=== PATIENT | female | born 1935 | race Caucasian/White ===

== ENCOUNTER 2018-07-19 20:25 | Inpatient (IN) | payer MEDICARE, MEDICAID ==
[~2018-07-19] VITALS: Ht 170.2 cm; Wt 70.8 kg
[2018-07-19] MEDS ORDERED: SODIUM CHLORIDE FLUSH 10ML SYR IVF ONE (21:00)
[2018-07-19 21:13] LABS: BASOPHILS # (AUTO) 0.14 x10^3/uL (0-0.1); BASOPHILS % (AUTO) 2 % (0-1); EOSINOPHILS # (AUTO) 0.08 x10^3/uL (0-0.4); EOSINOPHILS % (AUTO) 1 % (1-7); LYMPHOCYTES # (AUTO) 2.01 x10^3/uL (1-3.4); LYMPHOCYTES % (AUTO) 26 % (22-44); MD NO; MEAN CORPUSCULAR HEMOGLOBIN 31.5 pg (27.0-34.8); MEAN CORPUSCULAR HGB CONC 33.5 g/dL (32.4-35.8); MEAN CORPUSCULAR VOLUME 93.8 fL (80-100); MEAN PLATELET VOLUME 9.4 fL (7.4-10.4); MONOCYTES # (AUTO) 0.63 x10^3/uL (0.2-0.8); MONOCYTES % (AUTO) 8 % (2-9); NEUTROPHILS # (AUTO) 4.85 x10^3/uL (1.8-6.8); NEUTROPHILS % (AUTO) 63 % (42-75); PLATELET COUNT 220 x10^3/uL (130-400); RED CELL DISTRIBUTION WIDTH 12.6 % (9.6-15.2)
[2018-07-19 21:22] LABS: INTERNATIONAL NORMALIZED RATIO 1.02 (0.93-1.1); PROTHROMBIN TIME 10.5 Seconds (9.6-11.5)
[2018-07-19 21:23] LABS: ALANINE AMINOTRANSFERASE 18 U/L (12-78); ALBUMIN 3.4 g/dL (3.4-5.0); ANION GAP 6 mmol/L (5-15); CALCIUM 9.1 mg/dL (8.5-10.1); CHLORIDE 104 mmol/L (98-107); CREATININE 0.62 mg/dL (0.55-1.02)
[2018-07-19 21:27] LABS: ALKALINE PHOSPHATASE 56 U/L (45-117); BILIRUBIN,TOTAL 0.6 mg/dL (0.2-1.0); TROPONIN I < 0.015 ng/mL (0.000-0.045)
[2018-07-19] MEDS ORDERED: CEFTRIAXONE 1,000 MG in SODIUM CHLORIDE 0.9% 50 ML IVPB ONE (22:00)
[2018-07-19] MEDS ORDERED: PLEASE ENTER ALLERGIES MC SCH ×2 (22:00→23:00)
[2018-07-19] MEDS ORDERED: AZITHROMYCIN 500 MG in SODIUM CHLORIDE 0.9% 250 ML IVPB ONE (22:00)
[2018-07-19] MEDS ORDERED: SODIUM CHLORIDE 0.9% 1,000 ML IV SCH (22:08)
[2018-07-19] MEDS ORDERED: LABETALOL 5MG/ML, 20ML IVPush PRN (22:30)
[2018-07-19] MEDS ORDERED: POLYETHYLENE GLYCOL 17 GM PACKET PO PRN (22:30)
[2018-07-19] MEDS ORDERED: DOCUSATE 100 MG CAPSULE PO PRN (22:30)
[2018-07-19] MEDS ORDERED: PROMETHAZINE 25 MG/ML, 1ML IM PRN (22:30)
[2018-07-19] MEDS ORDERED: CEFTRIAXONE PMX 1GM/50ML 50 ML IV ONE (22:30)
[2018-07-19] MEDS ORDERED: ONDANSETRON ODT 4 MG PO PRN (22:30)
[2018-07-19] MEDS ORDERED: ONDANSETRON 2MG/ML, 2ML IVPush PRN (22:30)
[2018-07-19] MEDS ORDERED: BISACODYL 10 MG SUPP PR PRN (22:30)
[2018-07-19] MEDS ORDERED: CELEXA (22:39)
[2018-07-19] MEDS ORDERED: KLONOPIN (22:39)
[2018-07-19 23:05] LABS: HEMOGLOBIN A1C 5.3 % (4.2-6.3)
[2018-07-19 23:06] LABS: FREE T4 (FREE THYROXINE) 1.04 ng/dL (0.76-1.46); THYROID STIMULATING HORMONE 1.57 mIU/L (0.358-3.740)
[2018-07-19 23:11] VITALS: BP 157/73
[2018-07-19] MEDS: HEPARIN 5,000 UNITS/ML, 1ML SQ SCH (23:45)
[2018-07-20] MEDS: ACETAMINOPHEN 325 MG TABLET PO PRN (00:20)
[2018-07-20 01:42] VITALS: BP 143/63
[2018-07-20 04:44] LABS: BASOPHILS # (AUTO) 0.07 x10^3/uL (0-0.1); BASOPHILS % (AUTO) 1 % (0-1); EOSINOPHILS # (AUTO) 0.18 x10^3/uL (0-0.4); EOSINOPHILS % (AUTO) 3 % (1-7); LYMPHOCYTES # (AUTO) 2.29 x10^3/uL (1-3.4); LYMPHOCYTES % (AUTO) 34 % (22-44); MD NO; MEAN CORPUSCULAR HEMOGLOBIN 31.5 pg (27.0-34.8); MEAN CORPUSCULAR HGB CONC 33.6 g/dL (32.4-35.8); MEAN CORPUSCULAR VOLUME 93.6 fL (80-100); MEAN PLATELET VOLUME 9.3 fL (7.4-10.4); MONOCYTES % (AUTO) 10 % (2-9); NEUTROPHILS # (AUTO) 3.58 x10^3/uL (1.8-6.8); NEUTROPHILS % (AUTO) 53 % (42-75); PLATELET COUNT 203 x10^3/uL (130-400); RED BLOOD COUNT 3.71 x10^6/uL (3.82-5.3); RED CELL DISTRIBUTION WIDTH 12.4 % (9.6-15.2)
[2018-07-20 04:53] LABS: ANION GAP 6 mmol/L (5-15); CALCIUM 8.3 mg/dL (8.5-10.1); CHLORIDE 107 mmol/L (98-107)
[2018-07-20 04:58] LABS: ALANINE AMINOTRANSFERASE 16 U/L (12-78); ALKALINE PHOSPHATASE 52 U/L (45-117); BILIRUBIN,TOTAL 0.3 mg/dL (0.2-1.0); CHOL/HDL RATIO 2.7; CHOLESTEROL, TOTAL 159 mg/dL (140-239); CREATININE 0.72 mg/dL (0.55-1.02); HDL CHOL % 37 % (28-40); HDL CHOLESTEROL (DIRECT) 59 mg/dL (40-60); LDL CHOLESTEROL,CALCULATED 79 mg/dL (54-169); LDL/HDL RATIO 1.3 (0.5-3.0); TOTAL PROTEIN 7.2 g/dL (6.4-8.2); TRIGLYCERIDES 106 mg/dL (50-200); VLDL CHOLESTEROL 21 mg/dL (0-25)
[2018-07-20 07:15] VITALS: BP 136/62
[2018-07-20] MEDS: HEPARIN 5,000 UNITS/ML, 1ML SQ SCH ×3 (08:47→23:37)
[2018-07-20] MEDS ORDERED: POTASSIUM CHLORIDE 20 MEQ TAB.ER.PRT PO ONE (10:30)
[2018-07-20 12:56] VITALS: BP 144/56
[2018-07-20 19:19] VITALS: BP 173/77
[2018-07-20 19:42] VITALS: BP 157/73
[2018-07-20] MEDS: CEFTRIAXONE PMX 2GM/50ML 50 ML IV SCH (23:10)
[2018-07-21] VITALS (7 sets, daily range): BP systolic 113–193; BP diastolic 66–84
[2018-07-21] MEDS: hydrALAzine 20 MG/ML, 1ML IVPush PRN ×2 (01:27→14:47)
[2018-07-21] MEDS: AZITHROMYCIN 500 MG in SODIUM CHLORIDE 0.9% 250 ML IV SCH (01:40)
[2018-07-21] MEDS: HEPARIN 5,000 UNITS/ML, 1ML SQ SCH ×2 (08:41→17:35)
[2018-07-21] MEDS ORDERED: CEFU500T50 PO (09:09)
[2018-07-21] MEDS ORDERED: AZIT500T PO (09:09)
[2018-07-21] MEDS ORDERED: ZIPRASIDONE 20 MG INJ IM ONE ×2 (18:00→18:03)
[2018-07-21] MEDS: CEFTRIAXONE PMX 2GM/50ML 50 ML IV SCH (23:18)
[2018-07-22 01:03] VITALS: BP 115/67
[2018-07-22] MEDS: AZITHROMYCIN 500 MG in SODIUM CHLORIDE 0.9% 250 ML IV SCH (02:05)
[2018-07-22] MEDS: HEPARIN 5,000 UNITS/ML, 1ML SQ SCH ×3 (08:25→17:18)
[2018-07-22 08:29] VITALS: BP 136/67
[2018-07-22 13:50] VITALS: BP 137/71
[2018-07-22] MEDS ORDERED: HYDROCORTISONE 5 MG TABLET ONE (17:15)
[2018-07-22] MEDS: HYDROCORTISONE 10 MG TABLET PO SCH (17:27)
[2018-07-22] MEDS ORDERED: PROMETHAZINE 25MG TABLET PO PRN (19:30)
[2018-07-22 20:03] VITALS: BP 130/68
[2018-07-22] MEDS: ACETAMINOPHEN 325 MG TABLET PO PRN (20:25)
[2018-07-22] MEDS: CEFTRIAXONE PMX 2GM/50ML 50 ML IV SCH (23:21)
[2018-07-23 01:25] VITALS: BP 140/66
[2018-07-23] MEDS: HEPARIN 5,000 UNITS/ML, 1ML SQ SCH ×3 (02:00→17:02)
[2018-07-23] MEDS: AZITHROMYCIN 500 MG in SODIUM CHLORIDE 0.9% 250 ML IV SCH (03:05)
[2018-07-23 08:05] VITALS: BP 155/64
[2018-07-23] MEDS: CITALOPRAM 20 MG TABLET PO SCH ×2 (09:00→20:50)
[2018-07-23] MEDS: BISOPROLOL 5 MG PO SCH ×2 (09:00→20:44)
[2018-07-23] MEDS: HYDROCORTISONE 10 MG TABLET PO SCH ×2 (09:46→17:02)
[2018-07-23 12:58] VITALS: BP 130/72
[2018-07-23 18:55] LABS: MICROSCOPIC AUTO
[2018-07-23 18:56] LABS: CULTURE INDICATED? NO
[2018-07-23 19:15] VITALS: BP 134/66
[2018-07-23] MEDS: ACETAMINOPHEN 325 MG TABLET PO PRN (20:44)
[2018-07-23] MEDS: CEFTRIAXONE PMX 2GM/50ML 50 ML IV SCH (23:33)
[2018-07-24 01:45] VITALS: BP 125/64
[2018-07-24] MEDS: HEPARIN 5,000 UNITS/ML, 1ML SQ SCH ×3 (02:27→16:55)
[2018-07-24] MEDS: AZITHROMYCIN 500 MG in SODIUM CHLORIDE 0.9% 250 ML IV SCH (02:27)
[2018-07-24 07:01] VITALS: BP 145/67
[2018-07-24] MEDS: HYDROCORTISONE 10 MG TABLET PO SCH ×2 (09:05→16:55)
[2018-07-24] MEDS: BISOPROLOL 5 MG PO SCH ×3 (09:06→09:26)
[2018-07-24] MEDS: CITALOPRAM 20 MG TABLET PO SCH (09:06)
[2018-07-24 12:30] VITALS: BP 128/67
== END 2018-07-24 18:29 | disposition home or self-care (01) | DRG 194 ==
LOC: ED 21:57 → EDIP 21:58 → ED 22:12 → 3NW 23:03
PROVIDERS: ADMIT Internal Medicine; ATTEND Hospitalist
DX: J18.1 Lobar pneumonia, unspecified organism (principal); J96.11 Chronic respiratory failure with hypoxia; Z99.81 Dependence on supplemental oxygen; Z87.891 Personal history of nicotine dependence; Z60.2 Problems related to living alone; F32.9 Major depressive disorder, single episode, unspecified; F41.9 Anxiety disorder, unspecified; F03.90 Unspecified dementia, unspecified severity, without behavioral disturbance, psychotic disturbance, mood disturbance, and anxiety; R03.0 Elevated blood-pressure reading, without diagnosis of hypertension
CPT/HCPCS: 36415; 70450; 71045; 71250; 80053; 80061; 80307; 81001; 82140; 82962; 83036; 83735; 83880; 84439; 84443; 84484; 85025; 85610; 87040; 93005; 99285; G0378; J0456; J0696; J1644; J3486; 92522-GN; J0360; J7030; J7050